=== PATIENT | female | born 1985 | race Caucasian/White ===

== ENCOUNTER 2018-11-26 06:17 | Inpatient (IN) | payer MEDICAID ==
[~2018-11-26] VITALS: Ht 160 cm; Wt 65.9 kg
[2018-11-26] MEDS ORDERED: OXYTOCIN 30U/ 0.9% NaCL 500ML 500 ML IV PRN (06:55)
[2018-11-26] MEDS ORDERED: D5%-LACTATED RINGERS 1,000 ML IV SCH (06:55)
[2018-11-26] MEDS ORDERED: OXYTOCIN 30U/ 0.9% NaCL 500ML 500 ML IV ONE (06:55)
[2018-11-26] MEDS ORDERED: FENTANYL/BUPIV./NS/PF 250 ML EPIDCONT SCH (07:00)
[2018-11-26] MEDS ORDERED: FENTANYL PF 100 MCG/2ML IVPush PRN (07:00)
[2018-11-26] MEDS ORDERED: TERBUTALINE 1 MG/ML, 1ML IVPush PRN (07:00)
[2018-11-26] MEDS ORDERED: FENTANYL PF 100 MCG/2ML IV PRN (07:00)
[2018-11-26] MEDS ORDERED: ONDANSETRON 2MG/ML, 2ML IVPush PRN (07:00)
[2018-11-26] MEDS: LACTATED RINGERS 1,000 ML IV SCH ×3 (07:07→09:28)
[2018-11-26] MEDS ORDERED: OXYTOCIN 30U/ 0.9% NaCL 500ML 500 ML ONE (07:13)
[2018-11-26 07:28] LABS: BASOPHILS # (AUTO) 0.04 x10^3/uL (0-0.1); BASOPHILS % (AUTO) 0 % (0-1); EOSINOPHILS # (AUTO) 0.14 x10^3/uL (0-0.4); EOSINOPHILS % (AUTO) 1 % (1-7); LYMPHOCYTES # (AUTO) 3.07 x10^3/uL (1-3.4); LYMPHOCYTES % (AUTO) 25 % (22-44); MD NO; MEAN CORPUSCULAR HEMOGLOBIN 26.8 pg (27.0-34.8); MEAN CORPUSCULAR VOLUME 81.4 fL (80-100); MEAN PLATELET VOLUME 8.9 fL (7.4-10.4); MONOCYTES # (AUTO) 0.92 x10^3/uL (0.2-0.8); MONOCYTES % (AUTO) 8 % (2-9); NEUTROPHILS # (AUTO) 8.01 x10^3/uL (1.8-6.8); NEUTROPHILS % (AUTO) 66 % (42-75); PLATELET COUNT 341 x10^3/uL (130-400); RED BLOOD COUNT 3.88 x10^6/uL (3.82-5.3); RED CELL DISTRIBUTION WIDTH 14.8 % (9.6-15.2)
[2018-11-26 07:35] VITALS: BP 108/64
[2018-11-26] MEDS ORDERED: LIDOCAINE 1%, 20ML ONE (07:53)
[2018-11-26] MEDS ORDERED: MISOPROSTOL 200 MCG TABLET ONE (07:54)
[2018-11-26] MEDS ORDERED: FENTANYL PF 500 MCG, BUPIVACAINE/PF 0.5%, 30ML 62.5 ML in SODIUM CHLORIDE 0.9% 177.5 ML EPIDCONT SCH (08:00)
[2018-11-26] MEDS ORDERED: FENTANYL PF 100 MCG/2ML ONE (08:59)
[2018-11-26] MEDS ORDERED: BUPIVACAINE 0.25% ONE ×2 (08:59→09:00)
[2018-11-26] MEDS ORDERED: LIDOCAINE/PF 1.5%-EPI 1:200K, 30ML ONE (09:00)
[2018-11-26] MEDS ORDERED: FENTANYL/BUPIV./NS/PF 250 ML EPIDCONT ONE (09:00)
[2018-11-26] MEDS ORDERED: TERBUTALINE 1 MG/ML, 1ML ONE (11:27)
[2018-11-26] MEDS ORDERED: NEWBORN KIT ONE (11:30)
[2018-11-26] MEDS ORDERED: DIPH,PERTUSS(ACELL),TET VAC/PF NC IM-VACC PRN (13:00)
[2018-11-26] MEDS ORDERED: RHOGAM FROM BLOOD BANK 1 NOTE EA IM/IV ONE (13:00)
[2018-11-26] MEDS ORDERED: ONDANSETRON 2MG/ML, 2ML IV PRN (13:00)
[2018-11-26] MEDS ORDERED: MEASLES,MUMPS&RUBELLA VACC/PF 0.5 ML SQ-VACC PRN (13:00)
[2018-11-26] MEDS ORDERED: CALCIUM CARBONATE 500 MG TAB.CHEW PO PRN (13:00)
[2018-11-26] MEDS ORDERED: METHYLERGONOVINE 0.2 MG/ML IM PRN (13:00)
[2018-11-26] MEDS ORDERED: OXYcodone/APAP 5/325MG TABLET PO PRN (13:00)
[2018-11-26] MEDS ORDERED: MAGNESIUM HYDROXIDE 8%, 30ML UDC PO PRN (13:00)
[2018-11-26] MEDS ORDERED: OXYcodone IR 5MG TABLET PO PRN (13:00)
[2018-11-26 13:05] VITALS: BP 113/70
[2018-11-26 15:05] VITALS: BP 113/70
[2018-11-26] MEDS: IBUPROFEN 600 MG TABLET PO PRN ×2 (15:12→21:18)
[2018-11-26] MEDS: OXYTOCIN 30U/ 0.9% NaCL 500ML 500 ML IV SCH ×2 (15:40→22:58)
[2018-11-26] MEDS: DOCUSATE 100 MG CAPSULE PO PRN ×2 (17:44→21:18)
[2018-11-26 20:40] VITALS: BP 111/68
[2018-11-26 20:47] LABS: BASOPHILS # (AUTO) 0.05 x10^3/uL (0-0.1); BASOPHILS % (AUTO) 0 % (0-1); EOSINOPHILS # (AUTO) 0.31 x10^3/uL (0-0.4); EOSINOPHILS % (AUTO) 2 % (1-7); LYMPHOCYTES # (AUTO) 3.09 x10^3/uL (1-3.4); LYMPHOCYTES % (AUTO) 20 % (22-44); MD SCAN; MEAN CORPUSCULAR HEMOGLOBIN 27.3 pg (27.0-34.8); MEAN CORPUSCULAR VOLUME 82.7 fL (80-100); MONOCYTES # (AUTO) 1.59 x10^3/uL (0.2-0.8); MONOCYTES % (AUTO) 10 % (2-9); NEUTROPHILS # (AUTO) 10.72 x10^3/uL (1.8-6.8); NEUTROPHILS % (AUTO) 68 % (42-75); PLATELET COUNT 333 x10^3/uL (130-400); RED BLOOD COUNT 3.84 x10^6/uL (3.82-5.3); RED CELL DISTRIBUTION WIDTH 14.9 % (9.6-15.2)
[2018-11-27 00:44] VITALS: BP 102/65
[2018-11-27] MEDS: IBUPROFEN 600 MG TABLET PO PRN ×2 (03:48→09:54)
[2018-11-27 04:00] VITALS: BP 108/65
[2018-11-27] MEDS: LACTATED RINGERS 1,000 ML IV SCH (06:55)
[2018-11-27 08:00] VITALS: BP 99/68
[2018-11-27] MEDS: OXYTOCIN 30U/ 0.9% NaCL 500ML 500 ML IV SCH (08:58)
[2018-11-27] MEDS ORDERED: PRENATAL VIT/IRON/FA 1 EACH TABLET PO SCH (09:00)
[2018-11-27] MEDS: DOCUSATE 100 MG CAPSULE PO PRN (09:54)
[2018-11-27] MEDS ORDERED: PREN1TAB98 PO (12:35)
[2018-11-27] MEDS ORDERED: IBUP-1222 PO (12:36)
[2018-11-27] MEDS ORDERED: OXYC-302 PO (12:38)
[2018-11-27] MEDS ORDERED: MEASLES,MUMPS&RUBELLA VACC/PF 0.5 ML SQ-VACC ONE ×2 (13:12→13:30)
== END 2018-11-27 15:10 | disposition home or self-care (01) | DRG 768 ==
LOC: LDIP 06:17 → 2NW 14:48
PROVIDERS: ADMIT Obstetrics & Gynecology Gynecology; ATTEND Obstetrics & Gynecology Gynecology
PROC: 10E0XZZ Delivery of Products of Conception, External Approach (ICD-10-PCS; principal; 2018-11-26)
PROC: 0DQR0ZZ Repair Anal Sphincter, Open Approach (ICD-10-PCS; 2018-11-26)
PROC: 10907ZC Drainage of Amniotic Fluid, Therapeutic from Products of Conception, Via Natural or Artificial Opening (ICD-10-PCS; 2018-11-26)
PROC: 3E033VJ Introduction of Other Hormone into Peripheral Vein, Percutaneous Approach (ICD-10-PCS; 2018-11-26)
PROC: 3E0R3BZ Introduction of Anesthetic Agent into Spinal Canal, Percutaneous Approach (ICD-10-PCS; 2018-11-26)
PROC: 00HU33Z Insertion of Infusion Device into Spinal Canal, Percutaneous Approach (ICD-10-PCS; 2018-11-26)
PROC: 10H07YZ Insertion of Other Device into Products of Conception, Via Natural or Artificial Opening (ICD-10-PCS; 2018-11-26)
DX: O76 Abnormality in fetal heart rate and rhythm complicating labor and delivery (principal); Z37.0 Single live birth; O70.20 Third degree perineal laceration during delivery, unspecified; O66.0 Obstructed labor due to shoulder dystocia; Z3A.39 39 weeks gestation of pregnancy; Z80.3 Family history of malignant neoplasm of breast; Z82.49 Family history of ischemic heart disease and other diseases of the circulatory system; Z83.3 Family history of diabetes mellitus; Z80.9 Family history of malignant neoplasm, unspecified; Z90.89 Acquired absence of other organs
CPT/HCPCS: 36415; 82803; 85025; 86850; 86900; G0378; J3490; J2590; J3010; J7120

== ENCOUNTER 2019-03-29 11:50 | Day surgery (SDC) | payer MEDICAID, OTHER ==
[~2019-03-29] VITALS: Ht 160 cm; Wt 53.0 kg
[2019-03-29 18:02] VITALS: BP 104/58
== END 2019-03-29 22:26 | disposition home or self-care (01) ==
LOC: ED 14:09 → SDC 14:09 → ED 19:12 → SDC 22:26
PROVIDERS: ATTEND Emergency Medicine
DX: S86.812A Strain of other muscle(s) and tendon(s) at lower leg level, left leg, initial encounter (principal); W25.XXXA Contact with sharp glass, initial encounter; Y93.89 Activity, other specified; Y92.810 Car as the place of occurrence of the external cause; Y99.8 Other external cause status
CPT/HCPCS: 27380; 36415; 73701; 80048; 82040; 83605; 85025; 85651; 87070; 87075; 87205; 96365; 96366; 96375; 99284; J0330; J0690; J1100; J1885; J2405; J2704; J3010; J3370; Q9967; 10060